=== PATIENT | male | born 1980 | race Caucasian/White ===

== ENCOUNTER → 2018-11-25 | Outpatient (CLI) | payer BC | LOC: BMCIMAGING 08:34 | PROVIDERS: ATTEND Podiatrist Foot & Ankle Surgery | DX: M20.12 Hallux valgus (acquired), left foot (principal); M20.11 Hallux valgus (acquired), right foot; M19.071 Primary osteoarthritis, right ankle and foot; M19.072 Primary osteoarthritis, left ankle and foot ==

== ENCOUNTER → 2018-12-26 | Outpatient (CLI) | payer BC | LOC: BMCIMAGING 12:57 ==

== ENCOUNTER 2019-01-16 11:59 | Emergency (ER) | payer BC | END 2019-01-16 16:53 | disposition still patient (30) ==